=== PATIENT | female | born 1960 | race Caucasian/White ===

== ENCOUNTER 2018-06-10 09:10 | Day surgery (SDC) | payer SELFPAY ==
[~2018-06-10] VITALS: Ht 160 cm; Wt 47.6 kg
[~2018-06-10 09:10] MED LIST: EXCEDRIN TENSION HEA PO
[2018-06-10 11:48] VITALS: BP 124/56
== END 2018-06-10 12:07 | disposition home or self-care (01) | DRG 379 ==
LOC: ENDO 09:10 → ORM 11:30 → ENDO 12:07 → ORM 13:30
PROVIDERS: ATTEND Surgery
PROC: 0DJ08ZZ Inspection of Upper Intestinal Tract, Via Natural or Artificial Opening Endoscopic (ICD-10-PCS; principal; 2018-06-10)
PROC: 0DJD8ZZ Inspection of Lower Intestinal Tract, Via Natural or Artificial Opening Endoscopic (ICD-10-PCS; 2018-06-10)
DX: K92.1 Melena (principal); R14.0 Abdominal distension (gaseous); R68.81 Early satiety